=== PATIENT | female | born 1990 | race Caucasian/White ===

== ENCOUNTER → 2025-05-29 06:42 | Outpatient (CLI) | payer OTHER, SELFPAY ==
--- NOTE | 2025-05-29 06:43 | DI.US.S_ITS ---
PROCEDURE: US PELVIC COMPLETE INDICATIONS: 6 week f/u TECHNIQUE: Real-time scanning was performed of the pelvic organs, with image documentation. Additional endovaginal scanning was necessary due to incomplete visualization of the adnexal and endometrial structures by transabdominal scanning. COMPARISON: [facility], US, US PELVIC COMPLETE, 04/17/2025, 7:25. FINDINGS: Uterus: Uterus is anteverted and normal in size at 9.9 x 4.9 x 5.9 cm. The myometrium is homogeneous. The endometrium measures 3.9 mm combined thickness. Endometrium appears within normal limits. Intrauterine device in appropriate position. Ovaries: The right ovary measures 3.0 x 3.0 x 2.5 cm, with a calculated ovarian volume of 11.7 cc. The left ovary measures 1.9 x 3.1 x 2.2 cm, with a calculated ovarian volume of 6.6 cc. The ovaries have a normal sonographic appearance. Right ovary is not well seen but appears grossly within normal limits. Less than 12 follicles can be seen in each ovary. No adnexal masses are seen. Other: No pathologic free abdominal or pelvic fluid. IMPRESSION: Endometrium is normal in thickness and appearance. Intrauterine device appears in appropriate position. No significant abnormality is seen. We strive to produce accurate, complete, and clear reports of imaging services. To assist us in improving patient care, this report was composed using standard report templates and voice recognition software. Therefore, it may contain abnormal punctuation, insertions and/or omissions. Occasional wrong-word or sound-alike substitutions may occur. Though we review the report and make efforts to correct it, we do recommend that the report be read carefully in proper context to recognize any text inaccuracies. Dictated by: Odin Bean M.D. on 05/29/2025 at 9:07 Approved by: Odin Bean M.D. on 05/29/2025 at 9:09
== END ==
LOC: US 06:43
PROVIDERS: PCP Family Medicine; Referring Provider Family Medicine; Visit Provider Family Medicine
DX: R52 Pain, unspecified (principal); Z97.5 Presence of (intrauterine) contraceptive device
CPT/HCPCS: 76830; 76856

== ENCOUNTER 2025-07-18 09:51 | Day surgery (SDC) | payer OTHER, SELFPAY ==
[2025-07-03 12:46] VITALS: BMI 36.0
[2025-07-18] VITALS (10 sets, daily range): BP systolic 105–136; BP diastolic 55–83; PULSE 84–113; RESP 12–161; TEMP 36.1–36.6; O2SAT 92–98
--- NOTE | 2025-07-18 | PATH_ITS ---
[facility] Accession Number: [id number] No. of containers..03 Tissue . 01 Material submitted: . PART A: fallopian tube - BILATERAL FALLOPIAN TUBES PART B: endocervix - ENDOCERVICAL CURETTINGS PART C: endometrium - ENDOMETRIAL CURETTINGS . 01 Diagnosis: A. BILATERAL FALLOPIAN TUBES, BILATERAL SALPINGECTOMY: Bilateral fallopian tubes without pathologic abnormalities. Negative for atypia or malignancy. . B. ENDOCERVIX, CURETTINGS: Benign mixed endocervical and endometrial tissue with exogenous hormonal/progestin effect (upper endocervical/lower uterine origin tissue). Negative for dysplasia or malignancy. . C. ENDOMETRIUM, CURETTINGS: Benign weakly proliferative to inactive endometrium with changes compatible with exogenous hormonal/progestin effect and focal features suggestive of polyp, if imaging studies support. Negative for atypia, hyperplasia, or malignancy. [facility] 07/29/2025 1425 Local . 01 Electronically signed: . Amisha John MD, Pathologist NPI- [id number] . 01 Gross description: . A. Received in formalin labeled with two patient identifiers and bilateral fallopian tubes, and consists of two fimbriated fallopian tubes. The first fimbriated fallopian tube measures 4.5 cm in legnth by 0.5 cm in diameter and has a lauren-purple, smooth, glistening, serosal surface, and sectioning shows a 0.2 cm stellate lumen. The second fimbriated fallopian tube measures 4.2 cm in length by 0.5 cm in diameter, and has a lauren-purple, smooth, glitening, serosal surface. The specimen is inked blue and serially sectioend to show a 0.2 cm unremarkable stellate lumen. Glass Bulb Silverer sections are submitted as follows: A1: Fallopian tube 1 to include entire fimbriated end. A2: Fallopian tube 2 to include entire fimbriated end. B. Received in formalin labeled with two patient identifiers and endocervical curettings, and consists of a 2.5 x 1.5 x 1.0 cm aggregate of predominantly clotted blood admixed with soft tissue and mucus which is filtered and entirely submitetd in cassette B1. C. Received in formalin labeled with two patient identifiers and endometrial curettings, and consists of a 2.1 x 1.5 x 0.5 cm aggregate of predominantly clotted blood admixed with lauren soft tissue and mucus which is filtered and entirely submitted in cassette C1. ([id number]) /NORA 07/22/2025 0626 Local . 01 Pathologist provided ICD-10: N93.8, R93.89 . 01 CPT . 061985, [id number], 367302 Specimen Comment: A courtesy copy of this report has been sent to [phone] Performed at: [address] [address], [place], [place] [id number] MD Jim Castro MD Phone: [phone]
--- NOTE | 2025-07-18 10:26 | PM.PREOP ---
Pre-operative Note COVID-19 COVID-19 status: Not tested Interval Note History & Physical reviewed/Exam performed by Physician: Yes Changes to H&P: No
--- NOTE | 2025-07-18 10:32 | SUR.OPER ---
Lithotomy on padded OR bed. [place] Pad Positioner under torso. Head on pillow, arms padded and tucked at sides. Legs secured in padded yellow fins stirrups. final positioning done by provider
[2025-07-18] MEDS: SCOPOLAMINE 1 PATCH TOP (10:40)
[2025-07-18] MEDS: LACTATED RINGERS 1,000 ML 42 ML IV (10:40)
--- NOTE | 2025-07-18 11:37 | SUR.OPER ---
Lithotomy on padded OR bed. [place] Pad Positioner under torso. Head on pillow, bilateral arms padded and tucked at sides. Legs secured in padded yellow fins stirrups. safety strap across bilateral shoulders. all positioning approved and directed by surgeon prior to start of procedure.
--- NOTE | 2025-07-18 12:58 | PM.GYNOP.1 ---
Operative Date/Time/Diagnoses Date of procedure: 07/18/25 Time of procedure: 11:45 Pre-op diagnosis: Abnormal uterine bleeding Request for sterilization Post-op diagnosis: same Procedure & Clinicians Procedure: Procedures Operation Date: 07/18/25 11:15 Actual Procedure Side Surgeon p Laparoscopic Bilateral Salpingectomy s Removal of Mirena IUD Bilateral Pablo Eric MD s Hysteroscopy with dilation and curettage of the uterus s Endometrial ablation (NovaSure) Pablo Eric MD Indications: 35 year old here with irregular bleeding Mirena IUD replaced in February Irregular bleeding started in September, at times bleeding 3 weeks per month, since IUD was replaced she has had constant bleeding She started Wegovy in August Up to date on pap, done in February After consideration of all options, the patient has decided to move forward with laparoscopic bilateral salpingectomy at the same time she has removal of her IUD, hysteroscopy with possible biopsies, dilation and curettage of the uterus, and endometrial ablation by NovaSure. She presents today for her scheduled surgery. Surgeon: Pablo Eric Anesthesia Type: General Operative Notes Findings: The pelvis is completely normal with the uterus a normal size although slightly globoid in shape. There is no evidence of endometriosis in the pelvis and no other abnormalities were noted within the visible abdomen or pelvis. Closure Type: primary Specimen(s): endometrial curettings, left tube, right tube and other (Endocervical curettings) Applied: none Estimated blood loss (mL): 20 Blood products transfused: none Procedure in detail: With the patient under satisfactory general anesthesia in the modified dorsal lithotomy position, the perineum, vagina, and abdomen were prepped and draped for IUD removal and laparoscopic bilateral salpingectomy. A pre-surgical safety time-out was then taken in accordance with [facility] Main OR protocols. The umbilicus was then infiltrated with 0.5% Marcaine with epinephrine and 1 cm vertical incision was made in the inferior aspect of the umbilicus. Veress needle was used to insufflate the abdomen with carbon dioxide and once appropriately insufflated, 5 mm bladeless trocar and sleeve were inserted through the incision. Proper placement of the sleeve was confirmed with laparoscopic visualization and insufflation of the abdomen continued. A 2nd and 3rd 5 mm laparoscopic port were placed in the right and left mid quadrants using a similar technique and using a 3 puncture technique, the abdomen and pelvis were visualized with the findings as noted above. The distal aspect of the left fallopian tube was then grasped with a grasping forceps and using a Power Seal device, fimbria ovarica was coagulated and divided the dissection using the Power Seal continuing across the mesosalpinx to the cornua where the base fallopian tube was coagulated and divided. The left fallopian tube was then removed through one of the ports and submitted pathologic specimen. Attention was then turned to the right adnexa with distal tube grasped with a grasping forcep. The Power Seal device was then used to coagulate fimbria ovarica and the dissection was carried across the mesosalpinx to the cornua where the fallopian tube on the right side was amputated at the cornua following coagulation proximal tube the Power Seal device. Pelvis was inspected and there were no abnormalities noted following bilateral salpingectomy. The pneumoperitoneum was then vented and the ports removed from the abdominal wall. Port incisions were then closed with 4-0 Monocryl using inverted interrupted stitches and skin glue was applied. Appropriate dressings were then applied and preparations made for hysteroscopy/D&C/ablation. A bivalve speculum was then placed in the vagina and the cervix visualized. The anterior lip of the cervix was then grasped with a single-tooth tenaculum and the endocervical canal dilated to 5 mm. A hysteroscope was introduced through the endocervical canal into the endometrial cavity which was largely unremarkable in appearance. Fractional dilation and curettage of the uterus was then accomplished with separate ECC and EMC specimens obtained. The uterus was then sounded with the NovaSure device and using a depth of 6.5 cm and a width of 3.8 cm, NovaSure endometrial ablation was performed in the usual manner. Time of ablation was 62 seconds and power utilized was 136 w. The tenaculum was removed from the cervix along with the speculum, patient was awakened, and transferred to the PACU for a period of observation after having tolerated the procedure well. Complications: none Post-operative Condition: stable Disposition: PACU
[2025-07-18] MEDS: ONDANSETRON 4 MG/2 ML INJ IV (13:01)
[2025-07-18] MEDS: fentaNYL 100 MCG/2 ML INJ IV ×2 (13:02→13:07)
[2025-07-18] MEDS: hydrOXYzine 50 MG/ML INJ 25 MG IM (13:03)
--- NOTE | 2025-07-18 13:09 | SUR.PHASEI ---
DR Cueto at bedside. Pt with severe nausea. See order for Compazine IV placed by MD with verified verbal order. .
[2025-07-18] MEDS: PROCHLORPERAZINE 10 MG/2 ML VIAL IV (13:12)
[2025-07-18] MEDS: BENZOCAINE/MENTHOL 1 LOZ PKT 1 EACH PO (13:17)
== END 2025-07-18 14:45 | disposition home or self-care (01) ==
LOC: OR 09:52
PROVIDERS: PCP Family Medicine; Referring Provider Obstetrics & Gynecology; Visit Provider Obstetrics & Gynecology
PROC: 0UT74ZZ Resection of Bilateral Fallopian Tubes, Percutaneous Endoscopic Approach (ICD-10-PCS; CPT 58661; principal; 2025-07-18 11:15)
PROC: 0UDB8ZZ Extraction of Endometrium, Via Natural or Artificial Opening Endoscopic (ICD-10-PCS; CPT 58558; 2025-07-18 11:15)
DX: N93.9 Abnormal uterine and vaginal bleeding, unspecified (principal); Z30.2 Encounter for sterilization; Z30.432 Encounter for removal of intrauterine contraceptive device; D68.2 Hereditary deficiency of other clotting factors; Z86.711 Personal history of pulmonary embolism; Z86.718 Personal history of other venous thrombosis and embolism
CPT/HCPCS: 58661; 58563; 58301; 81025; 82962; J0330; J0780; J1100; J1171; J1885; J2405; J2704; J3010; J3410; J7120